=== PATIENT | male | born 1940 | race Caucasian/White ===

== ENCOUNTER → 2019-01-29 | Outpatient (CLI) | payer MEDICARE | END | disposition home or self-care (01) | LOC: PCVCCLINIC 13:00 | PROVIDERS: ATTEND Internal Medicine Cardiovascular Disease | DX: I45.10 Unspecified right bundle-branch block (principal); I10 Essential (primary) hypertension; E78.00 Pure hypercholesterolemia, unspecified; R09.89 Other specified symptoms and signs involving the circulatory and respiratory systems; E11.9 Type 2 diabetes mellitus without complications; E78.5 Hyperlipidemia, unspecified; F17.200 Nicotine dependence, unspecified, uncomplicated; Z79.82 Long term (current) use of aspirin; Z82.49 Family history of ischemic heart disease and other diseases of the circulatory system; Z79.899 Other long term (current) drug therapy | CPT/HCPCS: 93005; G0463 ==

== ENCOUNTER → 2019-03-19 | Outpatient (CLI) | payer MEDICARE ==
--- NOTE | 2019-03-19 16:58 | PCVCIMAG ---
APPROVED REPORT Study performed: 03/19/2019 15:25:35 Exam: Stress Echocardiogram Indication: Hypertension, Hyperlipidemia Patient Location: Echo lab Stress Nurse: Alana De La Torre RN Status: routine Ht: 6 ft 0 in HR: 81 bpm BP: 158/80 mmHg Rhythm: NSR Medical History Medical History: Diabetes, Smoking, RBBB Procedure The patient underwent an Exercise Stress Test using the Antonio Protocol. Blood pressure, heart rate, and EKG were monitored. An Echocardiogram was performed by accounting technician in four stages in quad fashion. At peak stress, four selected images were obtained and placed side by side with resting images for comparison. Stress Test Details Stress Test: Exercise stress testing was performed using a Antonio protocol. HR Resting HR: 98 bpmMax Heart Rate (APMHR): 143 bpm Max HR Achieved: 146 bpmTarget HR (85% APMHR): 121 bpm % of APMHR: 102 Recovery HR: 99 bpm HR response to stress: Normal HR response to stress BP Resting BP: 158/80 mmHg Max BP: 180/80 mmHg Recovery BP: 146/82 mmHg BP response to stress: Normal blood pressure response to stress. ECG Resting ECG: Sinus Rhythm Stress ECG: Sinus Rhythm Recovery ECG: Sinus Rhythm Clinical Reason for Termination: Maximal effort Exercise duration: 6 min sec Highest Stage Achieved: Stage 2: 2.5 mph at 12% grade. Exercise capacity: 7.00 METs Overall Exercise Capacity for Age: Normal Pre-Stress Echo The resting Echocardiogram showed normal left ventricular contractility with an estimated Ejection Fraction of about 50%. Normal wall motion in all segments on baseline images. Post-Stress Echo The stress Echocardiogram showed normal left ventricular contractility with an estimated Ejection Fraction of about 50-55%. Normal augmentation of wall motion in all segments on post stress images. Clinical No clinical or ECG evidence for ischemia. Conclusion Clinical Response: Non-ischemic Exercise Capacity: Average Stress ECG Response: Non-ischemic Stress Echo Images: Non-ischemic The left ventricle is normal in size and wall thickness in both the rest and stress images. Other Information Study Quality: Technically Difficult <Conclusion> The left ventricle is normal in size and wall thickness in both the rest and stress images.
--- NOTE | 2019-03-19 17:10 | PCVCIMAG ---
APPROVED REPORT Laterality: Bilateral Indications Stenosis Doppler Spectral Velocity Analysis PSV / EDVPSV / EDV ECA (R) 150 / 11 cm/sECA (L) 111 / 8 cm/s dICA (R) 69 / 20 cm/sdICA (L) 55 / 17 cm/s [place] (R) 145 / 35 cm/smICA (L) 117 / 23 cm/s pICA (R) 123 / 25 cm/spICA (L) 229 / 54 cm/s Bulb (R) 106 / 20 cm/sBulb (L) 77 / 8 cm/s dCCA (R) 64 / 16 cm/sdCCA (L) 77 / 18 cm/s mCCA (R) 66 / 17 cm/smCCA (L) 83 / 14 cm/s Vert (R) 67 / 12 cm/sVert (L) 62 / 15 cm/s ICA/CCA 2.27ICA/CCA 2.97 Findings The right carotid bulb has moderately severe calcified plaque. The right proximal internal carotid artery shows 60-70% stenosis. The right common carotid artery shows <40% stenosis. The right external carotid artery shows >50% stenosis. The left carotid bulb has moderately severe calcified plaque. The left proximal internal carotid artery shows 70-80% stenosis. The left common carotid artery shows <40% stenosis. The left external carotid artery shows no significant stenosis. Conclusion 1. Right internal carotid artery stenosis (60-70%). 2. Left internal carotid artery stenosis (70-80%) 3. Antegrade vertebral flow
== END | disposition home or self-care (01) ==
LOC: PCVCIMAG 14:30
PROVIDERS: ATTEND Internal Medicine Cardiovascular Disease
DX: I65.23 Occlusion and stenosis of bilateral carotid arteries (principal); E11.9 Type 2 diabetes mellitus without complications; E78.00 Pure hypercholesterolemia, unspecified; I10 Essential (primary) hypertension; I45.10 Unspecified right bundle-branch block; Z82.49 Family history of ischemic heart disease and other diseases of the circulatory system
CPT/HCPCS: 93325; 93351; 93880

== ENCOUNTER → 2019-07-03 | Outpatient (CLI) | payer MEDICARE | END | disposition home or self-care (01) | LOC: PCVCCLINIC 14:56 | PROVIDERS: ATTEND Internal Medicine Cardiovascular Disease | DX: I65.23 Occlusion and stenosis of bilateral carotid arteries (principal); I45.10 Unspecified right bundle-branch block; E78.00 Pure hypercholesterolemia, unspecified; E08.00 Diabetes mellitus due to underlying condition with hyperosmolarity without nonketotic hyperglycemic-hyperosmolar coma (NKHHC); I10 Essential (primary) hypertension; F17.210 Nicotine dependence, cigarettes, uncomplicated; Z82.49 Family history of ischemic heart disease and other diseases of the circulatory system | CPT/HCPCS: 36415; 80061; 93005; G0463 ==